=== PATIENT | female | born 1995 | race Two or more races ===

== ENCOUNTER 2017-09-12 19:51 | Inpatient (IN) | payer BC, OTHER ==
[2017-09-12 20:31] VITALS: BMI 29.8
[2017-09-12] MEDS ORDERED: Lactated Ringer's 1,000 ML IV SCH (22:45)
[2017-09-12 23:19] LABS: BASO # 0.1 K/uL (0.0-0.2); BASO % 0.7 % (0.0-2.0); EOS # 0.1 K/uL (0.0-0.7); EOS % 0.9 % (0.0-4.0); HEMOGLOBIN 11.1 g/dL (11.0-16.0); LYMPH # 2.3 K/uL (1.0-4.3); LYMPH % 20.8 % (20.0-40.0); MEAN CELL VOLUME 83.6 fL (81.0-99.0); MEAN CORPUSCULAR HGB CONC 33.5 g/dL (33.0-37.0); MEAN PLATELET VOLUME 12.9 fL (7.2-11.7); MONO # 0.9 K/uL (0.0-0.8); MONO % 7.9 % (0.0-10.0); NEUT # 7.7 K/uL (1.8-7.0); NEUT % 69.7 % (50.0-75.0); NRBC % 0.1 % (0.0-2.0); RBC 3.95 Mil/uL (3.80-5.20); RED CELL DISTRIBUTION WIDTH 14.7 % (11.5-14.5); WHITE BLOOD COUNT 11.1 K/uL (4.8-10.8)
[2017-09-12 23:27] LABS: SQUAMOUS EPITHIAL 9 /hpf (0-5); URINE BACTERIA OCC (<OCC); URINE BILIRUBIN NEGATIVE (NEGATIVE); URINE BLOOD NEGATIVE (NEGATIVE); URINE CLARITY Hazy (Clear); URINE COLOR Amber (YELLOW); URINE GLUCOSE (UA) 3+ mg/dL (Normal); URINE LEUKOCYTE ESTERASE TRACE Leu/uL (Negative); URINE PROTEIN NEGATIVE (NEGATIVE); URINE UROBILINOGEN NORMAL mg/dL (0.2-1.0)
[2017-09-12 23:32] LABS: ALB/GLOB RATIO 1.2 (1.0-2.1); ALBUMIN 3.9 g/dL (3.5-5.0); ALT/SGPT 28 U/L (9-52); AST/SGOT 31 U/L (14-36); BLOOD UREA NITROGEN 6 mg/dL (7-17); CALCIUM 9.7 mg/dl (8.6-10.4); GFR AFRICAN-AMERICAN > 60; GFR NON-AFRICAN AMERICAN > 60
--- NOTE | 2017-09-12 23:53 | OBHP ---
Datetime: 09/12/2017 19:45 IP Adm Impression: Term, intrauterine ; No Active Labor IP Admit Plan: Observation/Evaluation Admit Comment, IP Provider: 22 yo female G1 with an IUP at 39 4/7 weeks Presented with c/o of contractions and pain Diagnosed with LGA FHR's reactive and reassuring D/W Dr. Morrissey and request to continuous monitoring and probable admission for IOL. Pelvic Type - PN: Adequate Extremities - PN: Normal Abdomen - PN: Normal Back - PN: Normal Breast - PN: Not Done Lungs - PN: Normal Heart - PN: Normal Thyroid - PN: Normal Neurologic - PN: Normal HEENT - PN: Normal General - PN: Normal Presentation-Admit: Vertex FHR - Baseline A Provider: 120 Membranes, Provider: Intact Contraction Comments Provider: Ocassional Gestation - Est Wks by US: 39 4/7 weeks IP Hx Assessment: records revewed Vital Signs Provider: Reviewed; Within Normal Limits IP Chief Complaint: Maternal discomfort; evaluation NICHD Variability Prov Fetus A: Moderate 6-25bpm NICHD Accel Fetus A IP Provider: 10X10 FHR Category Provider Fetus A: Category I NICHD Decel Fetus A IP Provider: None Dilatation, Provider: 1 Effacement, Provider: 30 Station, Provider: -3 Genitourinary Exam: Normal DTRs - PN: Normal
--- NOTE | 2017-09-13 07:11 | OBADHP ---
Datetime: 09/12/2017 22:50 Admit Comment, IP Provider: 22 yo female G1 with an IUP at 39 4/7 weeks FHT's reactive and reassuring Ocasional contractions LGA D/W Dr. Morrissey and will admit patient for IOL and start with Cervidil Pelvic Type - PN: Adequate Extremities - PN: Normal Abdomen - PN: Normal Back - PN: Normal Breast - PN: Not Done Lungs - PN: Normal Heart - PN: Normal Thyroid - PN: Normal Neurologic - PN: Normal HEENT - PN: Normal General - PN: Normal Presentation-Admit: Vertex FHR - Baseline A Provider: 130 Membranes, Provider: Intact Contraction Comments Provider: Ocassional Gestation - Est Wks by US: 39 4/7 Vital Signs Provider: Reviewed; Within Normal Limits IP Chief Complaint: Maternal discomfort; evaluation NICHD Variability Prov Fetus A: Moderate 6-25bpm NICHD Accel Fetus A IP Provider: 10X10 FHR Category Provider Fetus A: Category I NICHD Decel Fetus A IP Provider: None Dilatation, Provider: 1 Effacement, Provider: 30 Station, Provider: -3 Genitourinary Exam: Normal DTRs - PN: Normal EGA AdmitDate IP: 39.3 IP Adm Impression: Term, intrauterine ; Intact Membranes IP Admit Plan: Admit to unit; Initiate labor induction protocol Datetime: 09/12/2017 19:45 IP Hx Assessment: records revewed
[2017-09-13] MEDS ORDERED: Oxytocin 30 UNIT 30 UNITS/500 ML BAG IV ONE ×2 (07:24→08:39)
--- NOTE | 2017-09-13 10:44 | OBADHP ---
Datetime: 09/13/2017 10:40 FHR - Baseline A Provider: 130 NICHD Variability Prov Fetus A: Moderate 6-25bpm NICHD Accel Fetus A IP Provider: 15X15 FHR Category Provider Fetus A: Category I Dilatation, Provider: 2 Effacement, Provider: 60 Station, Provider: -2 Datetime: 09/12/2017 22:50 IP Hx Assessment: The History has been Reviewed and is Current EGA AdmitDate IP: 39.3
--- NOTE | 2017-09-13 10:44 | OBPN ---
Datetime: 09/13/2017 10:40 IP Progress Impression: Normal progression of labor IP Procedures: Sterile Vag Exam IP Progress Plan: Continue present management FHR - Baseline A Provider: 130 IP Progress Note Comment: pt was examined at bed side ve 260/-2 start pitocin anticipate NICHD Accel Fetus A IP Provider: 15X15 FHR Category Provider Fetus A: Category I NICHD Variability Prov Fetus A: Moderate 6-25bpm Dilatation, Provider: 2 Effacement, Provider: 60 Station, Provider: -2 Datetime: 09/12/2017 22:50 Membranes, Provider: Intact Contraction Comments Provider: Ocassional Gestation - Est Wks by US: 39 4/7 Presentation-Admit: Vertex Vital Signs Provider: Reviewed; Within Normal Limits NICHD Decel Fetus A IP Provider: None
--- NOTE | 2017-09-13 10:53 | OBPN ---
Datetime: 09/13/2017 10:49 IP Progress Impression: Normal progression of labor IP Procedures: Artificial ROM; Sterile Vag Exam IP Progress Plan: Continue present management Contraction Comments Provider: q1-4 FHR - Baseline A Provider: 130 IP Progress Note Comment: pt was seen at bed side ve /-2 arom clear cont bpiutocin anticipate Vital Signs Provider: Reviewed; Within Normal Limits NICHD Accel Fetus A IP Provider: 15X15 FHR Category Provider Fetus A: Category I NICHD Variability Prov Fetus A: Moderate 6-25bpm Dilatation, Provider: 3 Effacement, Provider: 70 Station, Provider: -2
[2017-09-13] MEDS ORDERED: Bupivacaine HCl/FentaNYL Cit 100 ML EPI ONE (12:00)
[2017-09-13] MEDS ORDERED: Benzocaine/Menthol 20%-0.5% Topical Spray (60 ml) TOP PRN (18:15)
[2017-09-13] MEDS ORDERED: Oxycodone/Acetaminophen 5/325 mg Tab PO PRN ×2 (18:15)
[2017-09-13] MEDS ORDERED: Oxytocin 30 UNIT 30 UNITS/500 ML BAG IV SCH (18:30)
--- NOTE | 2017-09-14 06:33 | OBPPN ---
Datetime: 09/14/2017 06:31 PP Pain Prov: Within normal limits PP Nausea Prov: Denies PP Flatus Prov: Yes PP BM Prov: Yes PP Abdomen/Uterus Prov: Normal PP Lochia Prov: Normal PP Extremities Prov: Normal PP C/S Incision Prov: Not Applicable PP Impression Prov: Normal progression PP Plan Prov: Continue present management PP Progress Note Prov: pt was seen at bed side, pain under control,no n/v, toleratin deit, voiding, min lochia, flatusa+ ppd#1 cont po care cont pain ma encourage ambulatiom Vital Signs Provider PP: Reviewed; Within Normal Limits
[2017-09-14 08:18] LABS: BASO % 0.2 % (0.0-2.0); EOS % 0.1 % (0.0-4.0); LYMPH # 2.1 K/uL (1.0-4.3); LYMPH % 10.6 % (20.0-40.0); MEAN CORPUSCULAR HEMOGLOBIN 27.8 pg (27.0-31.0); MEAN CORPUSCULAR HGB CONC 33.4 g/dL (33.0-37.0); MEAN PLATELET VOLUME 10.9 fL (7.2-11.7); MONO # 1.3 K/uL (0.0-0.8); MONO % 6.5 % (0.0-10.0); NEUT # 16.2 K/uL (1.8-7.0); NEUT % 82.6 % (50.0-75.0); RBC 3.27 Mil/uL (3.80-5.20); RED CELL DISTRIBUTION WIDTH 15.4 % (11.5-14.5)
[2017-09-14 08:23] LABS: HEMOGLOBIN 9.1 g/dL (11.0-16.0); WHITE BLOOD COUNT 19.6 K/uL (4.8-10.8)
[2017-09-15 00:41] VITALS: RESP 20; TEMP 98.1
[2017-09-15 08:46] VITALS: BP 108/63; PULSE 83; O2SAT 99
== END 2017-09-15 11:55 | disposition home or self-care (01) | DRG 775 ==
LOC: C.EROB 19:51 → C.4D 22:44 → C.4M 09-13 21:19
PROVIDERS: ADMIT Obstetrics & Gynecology; ATTEND Obstetrics & Gynecology
PROC: 10E0XZZ Delivery of Products of Conception, External Approach (ICD-10-PCS; principal; 2017-09-13)
PROC: 10907ZC Drainage of Amniotic Fluid, Therapeutic from Products of Conception, Via Natural or Artificial Opening (ICD-10-PCS; 2017-09-13)
DX: O36.63X0 Maternal care for excessive fetal growth, third trimester, not applicable or unspecified (principal); Z37.0 Single live birth; Z3A.39 39 weeks gestation of pregnancy